=== PATIENT | male | born 1935 | race Caucasian/White ===

== ENCOUNTER 2019-12-17 10:40 | Emergency (ER) | payer MEDICARE, BC ==
[2019-12-17] MEDS ORDERED: predniSONE 20 MG Tab ONE (11:53)
[2019-12-17] MEDS ORDERED: methylPREDNISolone Sodium Succinate 125 MG/2 ML SDV IM ONE (12:00)
[2019-12-17] MEDS ORDERED: Take Home: predniSONE 20 MG, 2 Tab Pack PO ONE (12:00)
--- NOTE | 2019-12-17 12:06 | EDM.PDOC ---
ED HPI GENERAL MEDICAL PROBLEM - General Chief Complaint: General Stated Complaint: R Leg Pain Time Seen by Provider: 12/17/19 10:40 Source of Information: Reports: Patient History Limitations: Reports: No Limitations - History of Present Illness INITIAL COMMENTS - FREE TEXT/NARRATIVE: Aki is an 84 year old male who presents to ER with complaints of right knee pain. States started having discomfort above his right knee 3 days ago and has progressively gotten worse. Is concerned about a possible blood clot. Denies any swelling in his calf. Does note swelling of his knee. Having to walk with a cane due to pain. Relates had pain similar to this several weeks ago in his left foot, was checked for gout but was told tests were normal. Has been taking tylenol without much relief. r knee Pain Score (Numeric/FACES): 7 - Related Data Allergies Allergy/AdvReac Type Severity Reaction Status Date / Time No Known Allergies Allergy Verified 12/17/19 11:17 Home Meds: Home Meds . [Unable to Verify Home Med List] 12/17/19 [History] Past Medical History Cardiovascular History: Reports: High Cholesterol, Hypertension Endocrine/Metabolic History: Reports: Diabetes, Type II Social & Family History - Family History Family Medical History: Noncontributory - Tobacco Use Tobacco Use Status *Q: Never Tobacco User Second Hand Smoke Exposure: No - Caffeine Use Caffeine Use: Reports: None - Recreational Drug Use Recreational Drug Use: No ED ROS GENERAL - Review of Systems Review Of Systems: See Below Constitutional: Denies: Fever, Chills, Malaise, Weakness, Fatigue HEENT: Reports: No Symptoms Respiratory: Denies: Shortness of Breath, Cough Cardiovascular: Denies: Chest Pain, Edema, Lightheadedness Endocrine: Denies: Fatigue GI/Abdominal: Denies: Abdominal Pain, Nausea, Vomiting : Reports: No Symptoms Musculoskeletal: Reports: Leg Pain, Joint Pain Skin: Reports: Other (warmth to knee) ED EXAM, GENERAL - Physical Exam Exam: See Below Exam Limited By: No Limitations General Appearance: Alert, WD/WN, No Apparent Distress Ears: Normal External Exam, Normal TMs Nose: Normal Inspection, Normal Mucosa, No Blood Throat/Mouth: Normal Inspection, Normal Oropharynx Head: Normocephalic Neck: Normal Inspection, Supple, Non-Tender Respiratory/Chest: No Respiratory Distress, Lungs Clear, Normal Breath Sounds Cardiovascular: Regular Rate, Rhythm GI/Abdominal: Normal Bowel Sounds, Soft, Non-Tender Extremities: Increased Warmth, Redness, Other (right knee effusion noted. Has increased warmth. Pain with palpation.) Neurological: Alert, Oriented Skin Exam: Warm, Dry Course - Vital Signs Last Recorded V/S: Last Vital Signs Temp 98.8 F 12/17/19 10:41 Pulse 85 12/17/19 10:41 Resp 16 12/17/19 10:41 BP 134/85 12/17/19 10:41 Pulse Ox 96 12/17/19 10:41 - Orders/Labs/Meds Labs: Laboratory Tests 12/17/19 12/17/19 12/17/19 Range/Units 11:00 11:00 11:00 WBC 11.5 H (5.0-10.0) 10^3/uL RBC 5.11 (4.50-6.00) 10^6/uL Hgb 16.1 (14.0-18.0) g/dL Hct 46.8 (40.0-54.0) % MCV 91.6 (82.0-94.0) fL MCH 31.5 (27.0-32.0) pg MCHC 34.4 (33.0-38.0) g/dL RDW Coeff of Alvin 13.3 (11.0-15.0) % Plt Count 191 (150-400) 10^3/uL Neut % (Auto) 72.9 (35-85) % Lymph % (Auto) 20.3 (10-55) % [place] % (Auto) 5.5 (0-16) % Eos % (Auto) 1.0 (0-5) % Baso % (Auto) 0.3 (0-3) % Neut # (Auto) 8.37 H (1.80-7.00) 10^3/uL Lymph # (Auto) 2.33 (1.00-4.80) 10^3/uL [place] # (Auto) 0.63 (0.00-0.80) 10^3/uL Eos # (Auto) 0.12 (0.00-0.45) 10^3/uL Baso # (Auto) 0.03 10^3/uL D-Dimer, Quantitative 0.46 (0.00-0.50) Sodium 143 (136-145) mEq/L Potassium 3.3 L (3.5-5.0) mEq/L Chloride 103 (98-106) mEq/L Carbon Dioxide 31 (21-32) mmol/L BUN 17 (7-18) mg/dL Creatinine 1.4 H (0.7-1.3) mg/dL Est Cr Clr Drug Dosing 40.68 mL/min Estimated GFR (MDRD) 49 L (>=60) mL/min Glucose 205 H (75-99) mg/dL Uric Acid 7.9 H (3.5-7.2) mg/dL Calcium 9.2 (8.4-10.1) mg/dL Meds: Medications Discontinued Medications Generic Name Dose Route Start Last Admin Trade Name Freq PRN Reason Stop Dose Admin Methylprednisolone Sodium Succinate 125 mg 12/17/19 12:00 Solu-Medrol IM 12/17/19 12:01 NOW ONE Prednisone 1 packet 12/17/19 12:00 Take Home: Prednisone 20 Mg, 2 Tab Pack PO 12/17/19 12:01 ONETIME ONE - Re-Assessments/Exams Free Text/Narrative Re-Assessment/Exam: 12/17/19 1150 Labs reviewed. Uric acid level is high. D-dimer is negative. Advised patient of all results and treatment plan. will give solu medrol today. Start oral prednisone tomorrow. Follow up with PCP for further treatment for gout as needed. Departure - Departure Time of Disposition: 12:04 Disposition: Home, Self-Care 01 Condition: Fair Clinical Impression: Gout - Discharge Information *PRESCRIPTION DRUG MONITORING PROGRAM REVIEWED*: No *COPY OF PRESCRIPTION DRUG MONITORING REPORT IN PATIENT BRITNEY: No Instructions: Low-Purine Eating Plan Referrals: PCP,Unknown [Primary Care Provider] - Forms: ED Department Discharge Additional Instructions: 1. Rest 2. Ice or heat for symptom relief 3. Prednisone 40 mg (2 tabs of 20 mg) daily for 4 days, start tomorrow 4. Follow up with primary care provider in one week or sooner as needed Sepsis Event Note (ED) - Evaluation Sepsis Screening Result: No Definite Risk - Focused Exam Vital Signs: Vital Signs Temp Pulse Resp BP Pulse Ox 12/17/19 10:41 98.8 F 85 16 134/85 96
== END 2019-12-17 12:21 | disposition home or self-care (01) ==
LOC: CC.ED 10:40
DX: M10.9 Gout, unspecified (principal); M25.461 Effusion, right knee; I10 Essential (primary) hypertension; E11.9 Type 2 diabetes mellitus without complications
CPT/HCPCS: 36415; 80048; 84550; 85025; 85379; 96372; 99283; J2930; J7512